=== PATIENT | female | born 1990 | race Caucasian/White ===

== ENCOUNTER 2020-04-28 16:53 | Emergency (ER) | payer OTHER, MEDICAID, SELFPAY ==
[2020-04-28 17:00] VITALS: BP 146/83; PULSE 88; RESP 16; TEMP 36.8; O2SAT 100
[2020-04-28 17:29] LABS: Basophils Percent Auto 0.5 % (0.2-1.2); Eosinophils Absolute Auto 0.1 K/mm3 (0-0.3); Eosinophils Percent Auto 1.5 % (0-4.4); Hematocrit 40.6 % (37.0-47.0); Hemoglobin 13.2 g/dL (12.0-15.0); Immature Granulocyte Absolute 0.02 K/mm3 (0.00-0.031); Immature Granulocyte Percent A 0.2 % (0-0.5); Lymphocytes Absolute Auto 1.56 K/mm3 (0.9-3.2); Mean Corpuscular HGB Conc 32.5 g/dl (32-36); Mean Corpuscular Hemoglobin 28.6 pg (26-34); Mean Corpuscular Volume 87.9 fl (80-100); Mean Platelet Volume 10.1 fl (7.4-10.4); Monocytes Absolute Auto 0.3 K/mm3 (0.1-0.6); Monocytes Percent Auto 3.9 % (2.6-8.5); Neutrophils Absolute Auto 6.6 K/mm3 (1.3-6.7); Neutrophils Percent Auto 75.9 % (45.5-73.1); Platelet Count Result 246 k/mm3 (150-375); Red Blood Count 4.62 M/mm3 (4.2-5.4); White Blood Count 8.7 K/mm3 (4.5-10.0)
[2020-04-28 17:37] LABS: Add Urine Microscopic? YES; Appearance Urine Cloudy (Clear); Bacteria Urine Trace /hpf; Bilirubin Urine Negative (Negative); Blood Urine 3+ (Negative); Color Urine Yellow (Yellow); Glucose Urine UA Negative (Negative); Ketones Urine 1+ mg/dL (Negative); Leukocyte Esterase Ur 2+ LEU/UL (Negative); Mucus Urine Rare /lpf; Nitrate Urine Negative (Negative); Protein Urine 1+ mg/dL (Negative); Specific Grav Ur 1.023 (1.001-1.035); Squamous Epithelial Cell Urine Many /hpf (Few); Urobilinogen Urine Negative mg/dL (<2.0)
[2020-04-28 18:01] VITALS: BP 136/87; PULSE 83; RESP 15; O2SAT 100
--- NOTE | 2020-04-28 18:12 | ED.FEMALEGU ---
HPI - Female Genitourinary General Chief complaint: Vaginal Bleeding Stated complaint: VAG BLEED 12 WKS PREG Time Seen by Provider: 04/28/20 18:00 History of Present Illness HPI Narrative: 29 yo female at 12 weeks gestation presents to the ED for vaginal bleeding. She reports that she awoke this more with the sheets soaked in what looked like a mix of blood and water. She did not pass any tissue or clots. She has continued to have spotting throughout the day. No other symptoms. She does not know her blood type. She has had one previous spontaneous . Related Data Allergies Allergy/AdvReac Type Severity Reaction Status Date / Time No Known Allergies Allergy Verified 04/28/20 18:03 Review of Systems Review of Systems: All systems reviewed & are unremarkable except as noted in HPI and below Cardiovascular: Cardiovascular: Denies chest pain Respiratory: Respiratory: Denies dyspnea Gastrointestinal: Gastrointestinal: Denies abdominal pain and Denies nausea Genitourinary: Genitourinary: Denies nocturia and Denies dysuria Neurologic: Denies dizziness and Denies weakness [facility] Past Medical History Medical History (Updated 04/29/20 @ 00:00 by Carline Luis) Elective Social History Social History (Updated 04/28/20 @ 18:42 by Valeriano Novak MD) Smoking status: Never smoker Exam Const: General: healthy appearing, no acute distress and alert Nutritional Appearance: obese Orientation/consciousness: patient oriented x3 HENMT: Head: normal to inspection Resp: Effort & Inspection: normal respiratory effort Auscultation: clear to auscultation bilaterally Cardio: Rate: regular rate Rhythm: regular rhythm GI: GI Palp: Yes Soft to palpation and No Tenderness to palpation present (GI) Skin: General skin exam: normal color Neuro: General: patient oriented x3 and moves all extremities Speech: normal speech Extrem: General: normal to inspection and no edema Course Vital Signs Vital signs: Vital Signs Temperature 36.8 C 04/28/20 17:00 Pulse Rate 88 04/28/20 17:00 Respiratory Rate 16 04/28/20 17:00 Blood Pressure 146/83 H 04/28/20 17:00 Pulse Oximetry 100 04/28/20 17:00 Temperature 36.8 C 04/28/20 17:00 Pulse Rate 88 04/28/20 19:16 Respiratory Rate 14 04/28/20 19:16 Blood Pressure 114/76 04/28/20 19:16 Pulse Oximetry 99 04/28/20 19:16 Procedures Other Procedure Procedure 1: Other Procedure: I personally performed a bedside ultrasound Fetus appears grossly normal for reported dates. Reassuring movement FHR 158 hypoechoic area behind placeneta, suspect subchoriaonic hematma MDM - Female Genitourinary MDM Narrative Medical decision making narrative: most likely bleeding from subchorionic hematoma. Medical Records Attestation: I reviewed the patient's medical records. Lab Data Attestation: I reviewed the patient's lab results. Result diagrams: 04/28/20 17:09 Labs: Lab Results 04/28/20 04/28/20 04/28/20 Range/Units 17:09 17:09 17:09 WBC 8.7 (4.5-10.0) K/mm3 RBC 4.62 (4.2-5.4) M/mm3 Hgb 13.2 (12.0-15.0) g/dL Hct 40.6 (37.0-47.0) % MCV 87.9 (80-100) fl MCH 28.6 (26-34) pg MCHC 32.5 (32-36) g/dl RDW 14.0 (11.5-14.5) % Plt Count 246 (150-375) k/mm3 MPV 10.1 (7.4-10.4) fl Immature Gran % (Auto) 0.2 (0-0.5) % Neut % (Auto) 75.9 H (45.5-73.1) % Lymph % (Auto) 18.0 L (18.3-44.2) % [place] % (Auto) 3.9 (2.6-8.5) % Eos % (Auto) 1.5 (0-4.4) % Baso % (Auto) 0.5 (0.2-1.2) % Lymph # (Auto) 1.56 (0.9-3.2) K/mm3 [place] # (Auto) 0.3 (0.1-0.6) K/mm3 Eos # (Auto) 0.1 (0-0.3) K/mm3 Baso # (Auto) 0.0 (0.0-0.1) K/mm3 Abs Immat Gran (auto) 0.02 (0.00-0.031) K/mm3 Absolute Neuts (auto) 6.6 (1.3-6.7) K/mm3 Absolute Nucleated RBC 0.0 (0.0-0.012) K/mm3 Nucleated RBC % 0.0 (0.0-0.2) % Beta HCG, Quant 4
[2020-04-28 18:44] VITALS: BP 123/79; PULSE 73
[2020-04-28 18:45] VITALS: BP 127/85; BP 130/83; PULSE 71; PULSE 95
--- NOTE | 2020-04-28 18:52 | PC.NURSE ---
RN unable to find heart tones at this time. ERP notified.
--- NOTE | 2020-04-28 19:00 | PC.NURSE ---
PER ERP. HR 158
[2020-04-28 19:16] VITALS: BP 114/76; PULSE 88; RESP 14; O2SAT 99
== END 2020-04-28 19:17 | disposition home or self-care (01) ==
PROVIDERS: Emergency Medicine; Emergency Provider Emergency Medicine
DX: O20.0 Threatened abortion (principal); Z3A.12 12 weeks gestation of pregnancy
CPT/HCPCS: 36415; 81001; 84702; 85025; 85461; 99284

== ENCOUNTER 2020-05-01 07:23 | Outpatient (CLI) | payer OTHER, SELFPAY ==
--- NOTE | ~2020-05-01 | US_ITS ---
EXAMINATION: US OB <= 14 weeks fetus DATE: 05/01/2020 07:48 INDICATION: Spotting during first trimester TECHNIQUE: Real-time pelvic transabdominal and transvaginal ultrasound was performed. COMPARISON: None. FINDINGS: The uterus measures 13.0 x 6.9 x 10.1 cm. There is an intrauterine gestational sac. There is a 2.3 x 1.9 x 1.9 cm hypoechoic area adjacent to the gestational sac. heart motion is identi fied measuring 149 beats per minute (bpm) by M-mode Doppler. The crown rump length measures 5.1 cm , which correlates with an estimated gestational age of 11 weeks and 5 day(s) (+/-) 7 day(s). The ovaries are not visualized however no adnexal abnormality is seen. There is no free fluid in the pelvis. IMPRESSION: 1. Live intrauterine with an estimated gestational age of 11 weeks and 5 day(s) (+/-) 7 day (s) and an estimated delivery date of 11/15/2020. 2. Likely small subchorionic hematoma. Reviewed, dictated and finalized at location A. ICAL DATA ABSTRACTOR IMPRESSION: 1. Live intrauterine with an estimated gestational age of 11 weeks an d 5 day(s) (+/-) 7 day(s) and an estimated delivery date of 11/15/2020. 2. Likely small subchorionic hematoma.
== END 2020-05-01 07:24 | disposition home or self-care (01) ==
PROVIDERS: PCP Obstetrics & Gynecology Gynecology; Visit Provider Obstetrics & Gynecology Gynecology
DX: O26.851 Spotting complicating pregnancy, first trimester (principal); Z3A.11 11 weeks gestation of pregnancy
CPT/HCPCS: 76801

== ENCOUNTER 2020-05-11 12:36 | Outpatient (CLI) | payer OTHER, SELFPAY ==
--- NOTE | ~2020-05-11 | US_ITS ---
EXAMINATION: US OB <= 14 weeks fetus DATE: 05/11/2020 13:28 INDICATION: Subchorionic hematoma during first trimester . TECHNIQUE: Real-time pelvic ultrasound utilizing both a transvaginal and transabdominal probe was pe rformed. The interpreting radiologist was not present for the study. COMPARISON: 05/01/2020 FINDINGS: There is a single intrauterine fetus in vertex position with crown-rump length measuring 6.3 cm which is concordant within 2 days of prior estimated gestational age of 12 weeks and 3 days. heart m otion is identified measuring 152 beats per minute (bpm) by M-mode Doppler. Interval evolution of pre viously heterogeneously likely subchorionic hematoma now appearing more homogeneously hypoechoic and measuring 4.3 x 1.7 x 1.3 cm which is not significantly changed since the prior study. The ovaries ar e not visualized. There is no free fluid in the pelvis. IMPRESSION: 1. Single living fetus with heart rate of 152 bpm and crown-rump length of 6.3 similar which is concordant with previously estimated gestational age of 12 weeks 3 day(s) with ultrasound estimated date of delivery (DEV) of 11/20/2020. 2. Persistent small subchorionic hematoma. Reviewed, dictated and finalized at location H. ERS COMPENSATION CLAIMS SPECIALIST IMPRESSION: 1. Single living fetus with heart rate of 152 bpm and crown-rump length o f 6.3 similar which is concordant with previously estimated gestational age of 12 weeks 3 day(s) with ultrasound estimated date of delivery (DEV) of 11/20/2020 . 2. Persistent small subchorionic hematoma.
== END 2020-05-11 12:37 | disposition home or self-care (01) ==
PROVIDERS: PCP Obstetrics & Gynecology Gynecology; Visit Provider Obstetrics & Gynecology Gynecology
DX: O26.851 Spotting complicating pregnancy, first trimester (principal); O36.8910 Maternal care for other specified fetal problems, first trimester, not applicable or unspecified; Z3A.12 12 weeks gestation of pregnancy
CPT/HCPCS: 76801

== ENCOUNTER 2020-05-14 11:42 | Outpatient (CLI) | payer OTHER, SELFPAY ==
[2020-05-14 12:05] LABS: Collection Time Urine 24 HOURS
[2020-05-14 12:27] LABS: Basophils Percent Auto 0.3 % (0.2-1.2); Eosinophils Absolute Auto 0.1 K/mm3 (0-0.3); Eosinophils Percent Auto 1.3 % (0-4.4); Hematocrit 36.3 % (37.0-47.0); Hemoglobin 11.9 g/dL (12.0-15.0); Immature Granulocyte Absolute 0.03 K/mm3 (0.00-0.031); Immature Granulocyte Percent A 0.4 % (0-0.5); Lymphocytes Absolute Auto 1.58 K/mm3 (0.9-3.2); Lymphocytes Percent Auto 20.4 % (18.3-44.2); Mean Corpuscular HGB Conc 32.8 g/dl (32-36); Mean Corpuscular Hemoglobin 28.3 pg (26-34); Mean Corpuscular Volume 86.2 fl (80-100); Mean Platelet Volume 10.2 fl (7.4-10.4); Monocytes Absolute Auto 0.3 K/mm3 (0.1-0.6); Monocytes Percent Auto 4.4 % (2.6-8.5); Neutrophils Absolute Auto 5.7 K/mm3 (1.3-6.7); Neutrophils Percent Auto 73.2 % (45.5-73.1); Platelet Count Result 228 k/mm3 (150-375); Red Blood Count 4.21 M/mm3 (4.2-5.4); Red Cell Distribution Width 13.9 % (11.5-14.5); White Blood Count 7.8 K/mm3 (4.5-10.0)
[2020-05-14 12:37] LABS: Hemoglobin A1C 4.7 % (<5.7)
[2020-05-14 12:48] LABS: Estimated Glomerular Filt Rate > 60
[2020-05-14 13:24] LABS: HIV 1/2 Ab P24 Ag Result Negative (Negative)
[2020-05-14 13:46] LABS: Hepatitis B Surface Antigen Negative (Negative); Rubella IgG Antibody 13.6 IU/ML
[2020-05-14 15:55] LABS: Patient Weight 250 Lbs
[2020-05-14 15:57] LABS: Total Volume 24 Hour Urine 600 ml
[2020-05-14 16:24] LABS: Creatinine Clearance Urine 125.1 ml/min (75-125); Creatinine Urine 220.6 mg/dL
[2020-05-15 10:54] LABS: Rapid Plasma Reagin Non-Reactive (NonReactive)
== END 2020-05-14 11:43 | disposition home or self-care (01) ==
LOC: ANHLAB 11:45
PROVIDERS: PCP Obstetrics & Gynecology Gynecology; Visit Provider Nurse Practitioner
DX: Z34.90 Encounter for supervision of normal pregnancy, unspecified, unspecified trimester (principal); Z3A.00 Weeks of gestation of pregnancy not specified
CPT/HCPCS: 36415; 82306; 82565; 82575; 83036; 85025; 86592; 86703; 86762; 86850; 86900; 86901; 87340; G0432

== ENCOUNTER 2020-06-08 08:22 | Outpatient (CLI) | payer OTHER, SELFPAY ==
--- NOTE | ~2020-06-08 | US_ITS ---
US OB >= 14 weeks Fetus DATE: 06/08/2020 09:45 INDICATION: Subchorionic hematoma TECHNIQUE: Real-time imaging and Doppler analysis COMPARISON: 05/11/2020, 05/01/2020 obstetrical ultrasound examinations FINDINGS: Live chau intrauterine gestation, fetus in vertex presentation with heart rate o f 152 bpm. Posterior placenta. Normal amount of amniotic fluid by subjective assessment. There is interval virtually complete resolution of subchorionic hematoma since 05/11/2020. IMPRESSION: Virtually complete resolution of subchorionic hematoma since 05/11/2020 Reviewed, dictated and finalized at Location A. Reviewed, dictated and finalized at location A. [employer] OFFICER IMPRESSION: Virtually complete resolution of subchorionic hematoma since 2019
== END 2020-06-08 08:23 | disposition home or self-care (01) ==
PROVIDERS: Visit Provider Obstetrics & Gynecology Gynecology
DX: O26.851 Spotting complicating pregnancy, first trimester (principal); Z3A.00 Weeks of gestation of pregnancy not specified
CPT/HCPCS: 76805

== ENCOUNTER 2020-10-04 08:20 | Outpatient (CLI) | payer OTHER, SELFPAY ==
--- NOTE | ~2020-10-04 | US_ITS ---
EXAMINATION: US OB /maternal detail EXAM DATE: 10/04/2020 09:03 INDICATION: OB anatomy scan. 3rd trimester. TECHNIQUE: Pelvic obstetrical transabdominal sonogram was performed by a technologist. There are mu ltiple grayscale and Doppler images available for interpretation. Comparison is made to prior examina tion from 06/08/2020. FINDINGS: There is a single fetus identified in vertex presentation with a heart rate of 139 beats pe r minute. The placenta is located in the fundal position. There is no sonographic evidence of retrop lacental hemorrhage identified. The amniotic fluid index is 14.8 centimeters, which is normal. BIOMETRIC DATA: Biparietal diameter (BPD): 8.2 cm ----------------> 32 weeks 3 days. Head circumference (HC): 29.6 cm ----------------> 32 weeks 5 days. Abdominal circumference (AC): 29.9 cm ----------> 3 weeks 6 days. Femur length (FL): 6.5 cm --------------------------> 33 weeks 5 days. These measurements are concordant. HC/AC ratio is 0.99 (The 5th -- 95th percentile range is 0.96-1.11. Estimated weight is 2234 g +/- 335 g. This is the 56th percentile when the currently reported clinical gestation age 33 weeks 1 day, clinical estimated date of delivery (DEV-OPE) 11/21 is used. Fe simone estimated gestational age based on measurements from this exam is 33 weeks 2 days, with an estima lali date of delivery (DEV-AUA) 11/20. ANATOMIC SURVEY: Anatomy scan was limited due to advanced age and position. Following anatomy not well visualized: Cerebral ventricles, cisterna magna, nuchal fold, diaphragm. The following anatomy was visualized suboptimally, but appeared normal based on images availabl e: Spine, left ventricular outflow tract. The following anatomy is identified and is sonographically normal in appearance: Cerebellum Four-chamber heart Stomach Kidneys Bladder Three-vessel cord Cord insertion Nasal bone Extremities IMPRESSION: 1. Single fetus in vertex presentation with heart rate 139 beats per minute. 2. Estimated weight of 2234 grams, 56th percentile using the currently reported clinical gesta tion age of 33 weeks 1 day, DEV(OPE) 11/21. 3. Incomplete anatomic survey. Anatomy visualized was normal. 4. Normal amniotic fluid index 14.8 cm. Reviewed, dictated and finalized at location A. IMPRESSION: 1. Single fetus in vertex presentation with heart rate 139 beats per minute. 2. Estimated weight of 2234 grams, 56th percentile using the currently r eported clinical gestation age of 33 weeks 1 day, DEV(OPE) 11/21. 3. Incomplete anatomic survey. Anatomy visualized was normal. 4. Normal amniotic fluid index 14.8 cm.
== END 2020-10-04 08:21 | disposition home or self-care (01) ==
PROVIDERS: Visit Provider Obstetrics & Gynecology Gynecology
DX: Z36.9 Encounter for antenatal screening, unspecified (principal); Z3A.00 Weeks of gestation of pregnancy not specified
CPT/HCPCS: 76805

== ENCOUNTER 2020-10-23 00:11 | Inpatient (IN) | payer OTHER, SELFPAY ==
[2020-10-23] VITALS (158 sets, daily range): BP systolic 97–168; BP diastolic 50–114; PULSE 69–143; RESP 16–18; TEMP 35.9–37.1; O2SAT 96–100; BMI 48.4
--- NOTE | 2020-10-23 01:54 | OBADM ---
This patient, Dior Bai, admitted to the OB room Labor/Delivery/Recovery 105 for observation. Patient/family oriented to hospital policies and general routines including ID bracelet, bed and alarms, visiting hours, pain management, procedures, bathroom and other care routines, personal items, smoking policy, room service/diet, and visiting hours. Patient/Family are encouraged to report perceived risks to care and to ask questions if they do not understand what they are told or what they should do.
[2020-10-23] MEDS: LACTATED RINGERS 1,000 ML 125 ML IV CONT ×3 (03:48→08:20)
[2020-10-23] MEDS: AMPICILLIN 2 GM/NS 100 ML 2 GM/100 ML BAG IVPB (03:49)
[2020-10-23 04:15] LABS: Basophils Percent Auto 0.4 % (0.2-1.2); Eosinophils Absolute Auto 0.1 K/mm3 (0-0.3); Hematocrit 33.9 % (37.0-47.0); Hemoglobin 10.9 g/dL (12.0-15.0); Immature Granulocyte Absolute 0.04 K/mm3 (0.00-0.031); Immature Granulocyte Percent A 0.4 % (0-0.5); Lymphocytes Absolute Auto 1.94 K/mm3 (0.9-3.2); Lymphocytes Percent Auto 19.9 % (18.3-44.2); Mean Corpuscular HGB Conc 32.2 g/dl (32-36); Mean Corpuscular Hemoglobin 28.4 pg (26-34); Mean Corpuscular Volume 88.3 fl (80-100); Mean Platelet Volume 10.2 fl (7.4-10.4); Monocytes Absolute Auto 0.6 K/mm3 (0.1-0.6); Monocytes Percent Auto 5.7 % (2.6-8.5); Neutrophils Absolute Auto 7.1 K/mm3 (1.3-6.7); Neutrophils Percent Auto 72.6 % (45.5-73.1); Platelet Count Result 222 k/mm3 (150-375); Red Blood Count 3.84 M/mm3 (4.2-5.4); Red Cell Distribution Width 14.3 % (11.5-14.5); White Blood Count 9.8 K/mm3 (4.5-10.0)
--- NOTE | 2020-10-23 04:40 | LDADM ---
This patient, Dior Jennings Bai, was admitted to Labor/Delivery/Recovery 105 on 10/23/20 at 03:32. Plans for labor, pain management and were discussed with patient. Patient/family oriented to hospital policies and general routines including ID bracelet, bed and alarms, visiting hours, pain management, procedures, bathroom and other care routines, personal items, smoking policy, room service/diet and guest tray routines, infant security routines, and visiting hours. Patient/Family are encouraged to report perceived risks to care and to ask questions if they do not understand what they are told or what they should do. See OBIX for further documentation.
[2020-10-23 05:09] LABS: HIV 1/2 Ab P24 Ag Result Negative (Negative)
--- NOTE | 2020-10-23 05:09 | P.PNAN_ITS ---
Anes - Eval Pre Procedure Procedure: labor epidural Date/Time: 10/23/20 05:09 Surgeon: Fercho Preop Diagnosis: labor pain Pre Op Diagnosis: Contractions Patient Data Age: 30 Gender: F Height: 1.57 m Weight: 120 kg Last Vital Signs Pulse 81 10/23/20 05:08 BP 143/67 H 10/23/20 05:08 Pulse Ox 100 10/23/20 05:08 Allergies Allergy/AdvReac Type Severity Reaction Status Date / Time No Known Allergies Allergy Verified 04/28/20 18:03 Laboratory Tests 10/23/20 10/23/20 10/23/20 04:08 04:08 04:08 WBC 9.8 K/mm3 K/mm3 (4.5-10.0) RBC 3.84 M/mm3 L M/mm3 (4.2-5.4) Hgb 10.9 g/dL L g/dL (12.0-15.0) Hct 33.9 % L % (37.0-47.0) MCV 88.3 fl fl (80-100) MCH 28.4 pg pg (26-34) MCHC 32.2 g/dl g/dl (32-36) RDW 14.3 % % (11.5-14.5) Plt Count 222 k/mm3 k/mm3 (150-375) MPV 10.2 fl fl (7.4-10.4) Immature Gran % (Auto) 0.4 % % (0-0.5) Neut % (Auto) 72.6 % % (45.5-73.1) Lymph % (Auto) 19.9 % % (18.3-44.2) [place] % (Auto) 5.7 % % (2.6-8.5) Eos % (Auto) 1.0 % % (0-4.4) Baso % (Auto) 0.4 % % (0.2-1.2) Lymph # (Auto) 1.94 K/mm3 K/mm3 (0.9-3.2) [place] # (Auto) 0.6 K/mm3 K/mm3 (0.1-0.6) Eos # (Auto) 0.1 K/mm3 K/mm3 (0-0.3) Baso # (Auto) 0.0 K/mm3 K/mm3 (0.0-0.1) Abs Immat Gran (auto) 0.04 K/mm3 H K/mm3 (0.00-0.031) Absolute Neuts (auto) 7.1 K/mm3 H K/mm3 (1.3-6.7) Absolute Nucleated RBC 0.0 K/mm3 K/mm3 (0.0-0.012) Nucleated RBC % 0.0 % % (0.0-0.2) RPR Pending HIV 1&2 Ab/P24 Ag 4thGn Pending Patient hx anesthesia problems: none Family hx anesthesia problems: none PMFSH Past Medical History Medical History Elective Family History Family History Mother Brain aneurysm Social History Social History Smoking status: Never smoker Substance use: current Spiritual care concerns: No Exam Day of Procedure 10/23/20 05:09 Patient weight: morbidly obese Heart: regular rate and rhythm Lungs: clear to auscultation and normal air movement Airway: Mallampati scale class II Neurological: alert and oriented
--- NOTE | 2020-10-23 05:10 | WPDANESEFPP ---
Anes - Eval Final PreProcedure Day of Procedure 10/23/20 05:10 Patient weight: morbidly obese Heart: regular rate and rhythm Lungs: clear to auscultation and normal air movement Airway: Mallampati scale class II Neurological: alert and oriented ASA classification: III Anesthetic plan: proceed Anesthesia type and monitoring: regional epidural and standard monitoring Informed Consent: The patient's anesthetic plan and its attendant risks and benefits were discussed with the patient/family/POA. Questions were solicited and answers provided to the satisfaction of the patient/family/POA.
--- NOTE | 2020-10-23 07:37 | WPDOBADMIT ---
Obstetrics - Admit Note Admission Note: record reviewed. No pertinent additions to the history and/or any subsequent changes in the physical findings that are not consistent with the expected course of the were found. Additions to the history and/or subsequent changes in the physical findings follow. Here in early labor. at 0100 I did bedside u/s and verified vertex position as RN could not feel presenting part. Now 7-8/70/-2 AROM with clear fluid FHTs reactive Continue expectant mgmt.
[2020-10-23] MEDS: AMPICILLIN 1 GM/NS 50 ML 1 GM/50 ML BAG IVPB ×2 (08:21→12:05)
[2020-10-23 08:47] LABS: Amphetamine Screen Urine Negative (Negative); Barbiturate Screen Urine Negative (Negative); Benzodiazepines Screen Urine Negative (Negative); Cannabinoid Screen Urine Negative (Negative); Cocaine Screen Urine Negative (Negative); Methadone Screen Urine Negative (Negative); Opiate Screen Urine Negative (Negative); Phencyclidine Screen Urine Negative (Negative)
[2020-10-23 10:35] LABS: Rapid Plasma Reagin Non-Reactive (NonReactive)
[2020-10-23] MEDS: OXYTOCIN 30 UNITS/NS 500 ML 30 UNITS/500 ML BAG 999 UNITS IV CONT (12:20)
--- NOTE | 2020-10-23 12:28 | P.PCNOB_ITS ---
OB - Delivery Note Procedure Delivery date: 10/23/20 Procedure: events: Labor < 37 Weeks Intrapartal events: None Induction method: none Delivery augmentation: rupture of membranes Delivery monitor: external FHT and external uterine Route of delivery: Laceration Description: Periurethral Delivery repair: vicryl (3-0) Specimen: Yes (placenta) Quantitative Blood Loss (ml): 110 Anesthesia type: Epidural Disposition: PACU [place] [facility] Date of : 10/23/20 Weeks of gestation at delivery: 36 gender: Male presentation: vertex position: Right Occiput Anterior Placenta delivery description: Spontaneous cord vessel description: 3 Vessels score one minute: 9 score five minutes: 9
--- NOTE | 2020-10-23 12:29 | PM.OBDSVD ---
DS: Admitting Diagnosis Admitting Diagnosis Admitting Diagnosis: IUP 36 wks; labor DS: Discharge Diagnosis Discharge Diagnosis (1) (normal spontaneous vaginal delivery): Code(s): O80 - Encounter for full-term uncomplicated delivery Status: Acute (2) 36 weeks gestation of : Code(s): Z3A.36 - 36 weeks gestation of Status: Acute OB - DS: Summary OB Procedures : Ultrasound OB Procedures Intrapartum: Spontaneous Vag Delivery OB Procedures: : None Peripartum Data Delivery Method: Natural Vaginal Laceration Description: Periurethral complications: none Status at Discharge Functional status at discharge: independent ambulation Overall status at discharge: patient is progressing back to baseline Time Spent with Patient Time attestation: Total time spent providing and/or coordinating discharge services: DS: Data Data Completed and Pending Labs on day of discharge: Labs from last 24 hours 10/23/20 10/23/20 10/23/20 07:52 04:08 04:08 WBC RBC Hgb Hct MCV MCH MCHC RDW Plt Count MPV Immature Gran % (Auto) Neut % (Auto) Lymph % (Auto) [place] % (Auto) Eos % (Auto) Baso % (Auto) Lymph # (Auto) [place] # (Auto) Eos # (Auto) Baso # (Auto) Abs Immat Gran (auto) Absolute Neuts (auto) Absolute Nucleated RBC Nucleated RBC % Urine Opiates Screen Negative Urine Methadone Screen Negative Ur Barbiturates Screen Negative Ur Phencyclidine Scrn Negative Ur Amphetamine Screen Negative U Benzodiazepines Scrn Negative Urine Cocaine Screen Negative U Cannabinoids Screen Negative RPR HIV 1&2 Ab/P24 Ag 4thGn Negative Blood Type A Positive Antibody Screen Negative 10/23/20 10/23/20 04:08 04:08 WBC 9.8 RBC 3.84 L Hgb 10.9 L Hct 33.9 L MCV 88.3 MCH 28.4 MCHC 32.2 RDW 14.3 Plt Count 222 MPV 10.2 Immature Gran % (Auto) 0.4 Neut % (Auto) 72.6 Lymph % (Auto) 19.9 [place] % (Auto) 5.7 Eos % (Auto) 1.0 Baso % (Auto) 0.4 Lymph # (Auto) 1.94 [place] # (Auto) 0.6 Eos # (Auto) 0.1 Baso # (Auto) 0.0 Abs Immat Gran (auto) 0.04 H Absolute Neuts (auto) 7.1 H Absolute Nucleated RBC 0.0 Nucleated RBC % 0.0 Urine Opiates Screen Urine Methadone Screen Ur Barbiturates Screen Ur Phencyclidine Scrn Ur Amphetamine Screen U Benzodiazepines Scrn Urine Cocaine Screen U Cannabinoids Screen RPR Non-reactive HIV 1&2 Ab/P24 Ag 4thGn Blood Type Antibody Screen Discharge Plan Discharge Attending physician on discharge: Berenice Brantley Discharging Clinician: Berenice Brantley Anticipated Discharge Date/Time: 10/25/20 12:31 Patient Disposition: Home, Self-Care Activity: may shower and pelvic rest Diet: regular Patient Instructions: Antibiotic Form Stand Alone Forms: General Discharge Information Follow-up/Referrals: Berenice Brantley MD [Physician] - 6 Weeks Discharge Medications: Continued PNV [id number] [] 28 mg iron- 800 mcg Tablet 1 tablet PO DAILY RF: 0 Date of admission: 10/23/20 03:32 Primary Care Provider: PHYSICIAN,ASSISTANT PROFESSOR OF MUSIC Admitting Provider: Berenice Brantley Attending physician on admission: Berenice Brantley Condition: Stable
[2020-10-23] MEDS: OXYTOCIN 30 UNITS/NS 500 ML 30 UNITS/500 ML BAG 125 UNITS IV CONT (13:01)
[2020-10-23] MEDS: WITCH HAZEL 40 PADS 1 PAD TOPICAL (14:29)
[2020-10-23] MEDS: BENZOCAINE 20% AER SPR (*SP) 56 GM CAN 1 SPRAY TOPICAL (14:29)
--- NOTE | 2020-10-23 18:49 | PC.NURSE ---
Consulted with patient, reviewed feeding cues, frequencies, duration of feedings, feeding elimination flow sheet, and signs of adequate intake. Demonstrated stimulation techniques to wake for feeding. Assisted with to breast. Reviewed positioning/alignment, holding breast and asymmetrical latch on. was [able/unable] to latch correctly. nursed eagerly, with steady draws and [frequent/occasional] swallowing noted. Reviewed signs of a correct latch, effective nursing and suck swallow ratio. was[able/unable] to maintain latch without discomfort to mother. Nipple care reviewed. Instructed mother to call out for RN assistance if she is unable to latch for feeding or she has discomfort with nursing. Instructed feeding should be initiated three hours from start of last feeding or if feeding cues are noted before. Mother voiced understanding of information shared.
--- NOTE | 2020-10-23 18:50 | PC.NURSE ---
Breast pump provided due to [late infant]. Instructions given on breast pump care and usage, pumping schedule, nipple care, and collection and storage of breast milk. Encouraged [id number], breast massage and manual expression to stimulate supply. Pumping log provided and reviewed. Assessed patient for correct flange size, placement and draw. Patient verbalizes and demonstrates understanding of instructions.
[2020-10-24] MEDS: IBUPROFEN 600 MG TABLET PO ×3 (01:45→16:02)
[2020-10-24 04:00] VITALS: PULSE 69; RESP 18; TEMP 36.6; O2SAT 100
[2020-10-24 07:12] LABS: Hematocrit 30.9 % (37.0-47.0); Hemoglobin 9.9 g/dL (12.0-15.0)
--- NOTE | 2020-10-24 07:28 | PM.OBPNVD ---
OB - PN: Subj Subjective Date/time seen: 10/24/20 07:28 Patient comments: no complaints and pain well controlled baby status: doing well OB - PN: Obj Data Labs CBC & Chem 7: 10/24/20 06:43 Labs: Laboratory Results - last 24 hr 10/23/20 10/23/20 10/24/20 04:08 07:52 06:43 Hgb 9.9 L Hct 30.9 L Urine Opiates Screen Negative Urine Methadone Screen Negative Ur Barbiturates Screen Negative Ur Phencyclidine Scrn Negative Ur Amphetamine Screen Negative U Benzodiazepines Scrn Negative Urine Cocaine Screen Negative U Cannabinoids Screen Negative RPR Non-reactive OB - PN A/P Plan day: 1 Plan: routine care Time Spent With Patient Time: Total time spent is greater than 50% in coordination of care (as documented) at patient's floor/unit and/or counseling patient: Exam : Bimanual exam- vagina & uterus: other (Uterus firm, nt @U)
--- NOTE | 2020-10-24 09:18 | WPDANLDPN2 ---
Anes-Prog Note L&D Date/Time: 10/24/20 09:18 Comfortable throughout: labor and delivery Neuraxial method: epidural Epidural/Spinal procedure site: clean & non-tender Neuro status: Neuro function grossly intact. Cardiovascular status: normal Respiratory status: normal Airway patency: baseline Mental status: baseline Post-Op hydration status: normal Vital Signs: Last Vital Signs Temp 36.6 C 10/24/20 04:00 Pulse 69 10/24/20 04:00 Resp 18 10/24/20 04:00 BP 97/50 L 10/23/20 23:52 Pulse Ox 100 10/24/20 04:00 Pain score (VAS): 0 Post-procedural complaints: none Patient feedback: Patient satisfied with anesthetic care.
[2020-10-24] MEDS: POLYSACCHARIDE IRON COMPLEX 150 MG CAPSULE PO ×3 (10:15→16:02)
[2020-10-24] MEDS: DOCUSATE SODIUM 100 MG CAPSULE PO ×2 (10:16→16:02)
[2020-10-24] MEDS: MULTIVIT/MIN/PREN/FOL AC/IRON TABLET 1 TAB PO (10:16)
[2020-10-24] MEDS: ACETAMINOPHEN 325 MG TABLET 650 MG PO ×2 (10:19→16:02)
[2020-10-24 10:20] VITALS: BP 122/71; PULSE 77; RESP 18; TEMP 36.3; O2SAT 99
--- NOTE | 2020-10-24 10:26 | PCCCNOTE ---
Care Coordination: Met with pt. after receiving a consult regarding marijuana use during . Pt. reports she ate an edible during . Pt's urine screen here was negative for all drugs. Pt. reports living in [place] with FOB, , and three other children. Pt. states FOB is very supportive and they both are working. 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 Pt. denies any prior involvement with DCFS. Pt. denies any concerns regarding returning home with . resources were provided to pt. Per RN Jun, baby's meconium will be tested. Will follow.
--- NOTE | 2020-10-24 13:20 | PC.NURSE ---
Mother called out for assist with feeding. Consulted with patient, mother reports has been sleepy since . Infant will latch with short bursts of suckling and fall asleep. Mother will then supplement and pump. This is mother's 4th child 1st to breastfeed. Mother reports she has been given and instructed on breastpump. Mother has not pumped regularly. Discussed stimulation and milk supply. advising to pump after each feeding attempt. Discussed and the 36 week , establishing may have its own unique set of circumstances due to their immaturity. infants may be less alert, have less stamina and may have issues with latch, suck and swallow. With the possible inability to have a vigorous suck swallow, infants may not be adequately stimulating mother and/or able to have adequate milk transfer. Pumping should be considered for additional stimulation and to offer EBM as part of supplement if needed. Reviewed feeding cues, frequencies, duration of feedings, feeding elimination flow sheet, and signs of adequate intake. Demonstrated stimulation techniques to wake infant for feeding. Assisted with to breast. Reviewed positioning/alignment in football, holding breast in C hold and guided asymmetrical latch on. Infant was able to latch within a few attempts. Infant nursed eagerly, with steady draws and occasional swallowing noted, followed with long pausing. Reviewed signs of a correct latch, effective nursing and suck swallow ratio. Infant was able to maintain latch. Mother reported tenderness at times, had slipped to shallow latch. Demonstrated how to adjust latch more deeply while feeding. Mother quickly reports she can feel is latched more deeply and has minimal tenderness. Advised is doing well with nursing, he is not nursing long enough to discontinue supplementation or pumping at this time. Suggested to stimulate while feeding to keep awake and nursing effectively for increased stimulation, increased intake and to assist with maintaining deep latch. Instructed mother to call out for RN assistance if she is unable to latch for feeding or she has discomfort with nursing.
[2020-10-24 20:00] VITALS: BP 107/63; PULSE 69; RESP 18; TEMP 36.4; O2SAT 98
[2020-10-25] MEDS: IBUPROFEN 600 MG TABLET PO ×2 (02:22→09:59)
--- NOTE | 2020-10-25 07:40 | PM.OBPNVD ---
OB - PN: Subj Subjective Date/time seen: 10/25/20 07:40 Patient comments: no complaints and pain well controlled baby status: doing well OB - PN: Obj Data Labs CBC & Chem 7: 10/24/20 06:43 OB - PN A/P Plan day: 2 Plan: routine care, discharge home, follow up 6 weeks and other (plans condoms until BTL) Time Spent With Patient Time: Total time spent is greater than 50% in coordination of care (as documented) at patient's floor/unit and/or counseling patient: Exam : Bimanual exam- vagina & uterus: other (Uterus firm, nt @U)
[2020-10-25 08:45] VITALS: BP 121/68; PULSE 78; RESP 18; TEMP 36.6; O2SAT 98
[2020-10-25 09:00] VITALS: PULSE 78; RESP 18; O2SAT 98
[2020-10-25] MEDS: POLYSACCHARIDE IRON COMPLEX 150 MG CAPSULE PO (09:59)
[2020-10-25] MEDS: DOCUSATE SODIUM 100 MG CAPSULE PO (09:59)
[2020-10-25] MEDS: MULTIVIT/MIN/PREN/FOL AC/IRON TABLET 1 TAB PO (09:59)
--- NOTE | 2020-10-25 13:54 | PC.NURSE ---
0900 Mother is able to independently latch with appropriate positioning/alignment. continues with sleepiness and ineffective feeding. Mother will attempt for 5-10 minutes then supplement and pump, offering EBM/formula of 25mls each feeding. She is feeding as required and waking to feed if needed. Mother is pumping without difficulties or discomfort. Mother has a pump for home use, and is pumping after each attempt. Discussed to increase supplementation of EBM/formula as infant desires to satisfaction, for low output or not effectively feeding. Reviewed signs when infant may be ready to decrease or discontinue supplementation. Advised not to discontinue supplement until is effectively feeding and a feeding is observed by ICP, follow up RN or LC. Infant is feeding as required with adequate feedings, by bottle, in the past 24 hours, and is currently meeting outcomes for weight, output, jaundice and feeding frequencies. Mother states she feels confident to continue current feeding plan at home. Reviewed transition to breast milk, signs of adequate intake, and engorgement/relief. Instructed to call ICP if intake/output less than required. Reviewed regular medications mother is taking. Information provided per Kati. Reviewed community resources on the [facility] website and in the Mom/Baby guide. Information on outpatient services provided. Mother has no further questions at this time.
== END 2020-10-25 12:10 | disposition home or self-care (01) | DRG 560 ==
LOC: ANHLDR 12:32 → ANHOB2 15:07
PROVIDERS: Admitting Provider Obstetrics & Gynecology Gynecology; Visit Provider Obstetrics & Gynecology Gynecology
DX: O60.14X0 Preterm labor third trimester with preterm delivery third trimester, not applicable or unspecified (principal); Z37.0 Single live birth; Z3A.36 36 weeks gestation of pregnancy; O71.82 Other specified trauma to perineum and vulva; O99.214 Obesity complicating childbirth; E66.01 Morbid (severe) obesity due to excess calories
CPT/HCPCS: 36415; 80307; 85014; 85018; 85025; 86592; 86703; 86850; 86900; 86901; 88307; A9270; G0432; J0290; J2590; J2795; J7120

== ENCOUNTER 2022-12-05 14:46 | Emergency (ER) | payer OTHER, SELFPAY ==
[2022-12-05 15:08] VITALS: BP 114/67; PULSE 84; RESP 16; TEMP 36.1; O2SAT 97
--- NOTE | 2022-12-05 16:06 | PC.NURSE ---
called to be placed in room 17 and not in waiting room.
--- NOTE | 2022-12-05 16:25 | PC.NURSE ---
called again to place in room and not in waiting room.
== END 2022-12-05 16:25 | disposition left against medical advice (07) ==
DX: S09.90XA Unspecified injury of head, initial encounter (principal)
CPT/HCPCS: 99199

== ENCOUNTER 2023-09-24 10:03 | Emergency (ER) | payer OTHER, SELFPAY ==
[2023-09-24 10:37] VITALS: BP 127/66; PULSE 92; RESP 16; TEMP 36.7; O2SAT 99
--- NOTE | 2023-09-24 10:44 | ED.URI ---
HPI - URI/Sore Throat General Chief Complaint: Upper Respiratory Infection Stated Complaint: Throat Time Seen by Provider: 09/24/23 10:34 Source: patient and RN notes reviewed Mode of arrival: ambulatory Limitations: no limitations History of Present Illness HPI Narrative: Patient presents today complaining of a sore throat since yesterday. Denies any additional symptoms to include cough, congestion, runny nose. Currently rates her pain 5/10, which increases with swallowing. She has been taking ibuprofen without much relief. Children present with her with similar symptoms. Related Data Allergies Allergy/AdvReac Type Severity Reaction Status Date / Time No Known Allergies Allergy Verified 04/28/20 18:03 Review of Systems Review of Systems: CONSTITUTIONAL: Denies body aches, fever, chills, or sweats. EYES: Denies visual changes, redness, or discharge. ENT: Denies rhinorrhea, congestion, or otalgia.+ sore throat CARDIOVASCULAR: Denies chest pain, palpitations, or edema. RESPIRATORY: Denies cough or dyspnea. GASTROINTESTINAL: Denies abdominal pain, nausea, vomiting, or diarrhea. GENITOURINARY: Denies dysuria or hematuria. SKIN: Denies rash, itching, or wounds. MUSCULOSKELETAL: Denies back pain, joint pain, or myalgia. NEUROLOGIC: Denies headache, numbness, tingling, or weakness. PSYCH: Denies depression or anxiety. [facility] Past Medical History Medical History Elective Family History Family History Mother Brain aneurysm Social History Social History Smoking status: Never smoker Substance use: current Spiritual care concerns: No Comments At time of signature, I have reviewed and agree with nursing past medical, surgical, social and family history unless otherwise noted. Please see nursing chart for further information. There is no relevant family history pertinent to the presenting complaint Exam Narrative: GENERAL: Well-appearing, well-nourished, and in no acute distress. HEAD: Normocephalic, atraumatic. EYES: EOMI. No redness or drainage. Conjunctivae normal. ENT: Mucous membranes pink and moist. Nares clear. No rhinorrhea. TMs normal bilaterally. Throat erythematous and edematous. Tonsils 3+. Uvula midline. NECK: Normal AROM. Supple. No lymphadenopathy. CHEST: No respiratory distress. Clear to auscultation. HEART: Regular rate and rhythm. No murmur appreciated. EXTREMITIES: Normal range of motion. No edema. SKIN: Warm, dry, no rash. Capillary refill normal. Normal skin turgor. NEURO: No focal deficits. Alert and oriented x3. Gait steady. PSYCH: Normal affect. No signs of depression or anxiety. Course Course Level of Care: Express Care Visit Vital Signs Vital signs: Vital Signs Temperature 98.0 F 09/24/23 10:37 Pulse Rate 92 09/24/23 10:37 Respiratory Rate 16 09/24/23 10:37 Blood Pressure 127/66 09/24/23 10:37 Pulse Oximetry 99 09/24/23 10:37 Oxygen Delivery Room Air 09/24/23 10:37 Temperature 98.0 F 09/24/23 10:37 Pulse Rate 92 09/24/23 10:37 Respiratory Rate 16 09/24/23 10:37 Blood Pressure 127/66 09/24/23 10:37 Pulse Oximetry 99 09/24/23 10:37 Oxygen Delivery Room Air 09/24/23 10:37 Reviewed MDM - URI/Sore Throat MDM Narrative Medical decision making narrative: Strep positive. Prescription for amoxicillin sent to pharmacy. Anticipatory guidance given. Differential Diagnosis Differential diagnosis: Likely upper respiratory infection, viral infection, pharyngitis and other (Strep throat) Lab Data Attestation: I reviewed the patient's lab results. Lab results narrative: Rapid strep positive Critical Care Time Critical Care Time Critical Care Time: No Discharge Plan Discharge Clinical Impression: Strep throat
== END 2023-09-24 11:01 | disposition home or self-care (01) ==
PROVIDERS: Emergency Provider Nurse Practitioner
DX: J02.0 Streptococcal pharyngitis (principal)
CPT/HCPCS: 87880; 99213; G0463

== ENCOUNTER 2024-05-18 13:57 | Emergency (ER) | payer BC, SELFPAY ==
--- NOTE | 2024-05-18 14:04 | ED.GENADULT ---
HPI - General Adult General Chief complaint: Dizziness Stated complaint: poss vertigo Time Seen by Provider: 05/18/24 14:10 Source: patient, RN notes reviewed and old records reviewed Mode of arrival: ambulatory Limitations: no limitations History of Present Illness HPI narrative: 33 year old female presents to [facility] care with complaints of awakening this morning at 0600 with room spinning which did resolve after a while and then reoccurred with position changes. Patient reports that she has felt ear fullness for the past 3 days, denies any ear pain,sinus congestion sore throat of any other ill symptoms. Patient reports that she has never had any problems with her blood pressure except when she was in her last trimester. Patient has not taken any OTC medications for her symptoms. Patient denies any headache pain does report that she has had 2 migraines in the past month which were resolved with Excedrin migraine medication. MD complaint: vertigo and ear fullness Onset (ago): day(s) (3 days of ear fullness, and this morning experienced vertigo) Severity: moderate Exacerbating factors: other (change of position) Treatments prior to arrival: none Related Data Allergies Allergy/AdvReac Type Severity Reaction Status Date / Time No Known Allergies Allergy Verified 04/28/20 18:03 Review of Systems Review of Systems: CONSTITUTIONAL: Denies fever, chills, or sweats. EYES: Denies visual changes, redness, or discharge. ENT: Denies rhinorrhea, congestion, sore throat,reports ear fullness CARDIOVASCULAR: Denies chest pain, palpitations, or edema. RESPIRATORY: Denies cough or dyspnea. GASTROINTESTINAL: Denies abdominal pain, nausea, vomiting, or diarrhea. GENITOURINARY: Denies dysuria or hematuria. SKIN: Denies rash or itching. MUSCULOSKELETAL: Denies back pain, joint pain, or myalgia. NEUROLOGIC: Denies headache, numbness, or weakness, reports episodes of vertigo especially with position changes. PSYCHIATRIC: Denies anxiety or depression. All systems reviewed & are unremarkable except as noted in HPI and below PMFSH Past Medical History Medical History (Updated 05/19/24 @ 00:01 by Carline Luis) Elective Hypertension affecting Surgical History Surgical History (Updated 05/18/24 @ 14:28 by Yohana Carlos NP) History of dilatation and curettage Family History Family History Mother Brain aneurysm Social History Social History Smoking status: Never smoker Alcohol intake: never Substance use: never Living arrangements: with family Gender identity (if verbalized by the patient): Female Spiritual care concerns: No Comments At time of signature, agree with nursing past medical, surgical, social and family history. There is no relevant family history pertinent to the presenting complaint Exam Narrative: GENERAL: Well-appearing, well-nourished, and in no acute distress. HEAD: Normocephalic, atraumatic. EYES: PERRLA and EOMI. ENT: Nares clear, no rhinorrhea or epistaxis. Mucous membranes moist.TM's with dull light reflex and some bulging no redness, throat pink with no redness or swelling NECK: Supple. no lymphadenopathy CHEST: Clear to auscultation. No respiratory distress.SAO2 100% on room air HEART: Regular rate and rhythm. No murmur heard. Normal peripheral pulses. ABDOMEN: Soft, nontender, nondistended, normal active bowel sounds. EXTREMITIES: Normal range of motion. No edema. SKIN: Warm, dry, no rash. NEURO: No focal deficits. Alert and oriented x3.vertigo with position changes, see orthostatics Course Course Emergency Course: Patient is aware of diagnosis, understands and agrees to treatment plan.? Anticipatory guidance given.? Patient agrees to follow-up as directed and is aware of reasons to seek care at the emergency department. Portions of this record may have been created with voice recognition software Level of Care: Express Care Visit Vital Signs Vital signs: Vital Signs Temperature 36.4 C L 05/18/24 14:06 Pulse Rate 95 05/18/24 14:06 Respiratory Rate 16 05/18/24 14:06 Blood Pressure 138/72 05/18/24 14:06 Pulse Oximetry 100 05/18/24 14:06 Oxygen Delivery Room Air 05/18/24 14:06 Temperature 36.4 C L 05/18/24 14:06 Pulse Rate 120 H 05/18/24 14:20 Respiratory Rate 16 05/18/24 14:06 Blood Pressure 133/79 05/18/24 14:20 Pulse Oximetry 100 05/18/24 14:06 Oxygen Delivery Room Air 05/18/24 14:06 Reviewed Medical Decision Making MDM Narrative Medical decision making narrative: Exam findings and imaging show no acute concerns or changes; patient is non-toxic appearing and is in no distress.? Patient is appropriate for outpatient treatment and follow-up Differential Diagnosis Differential Diagnosis: benign positional vertigo, bilateral ear fullness, dizziness Medical Records Medical records reviewed: Yes I reviewed the external patient's medical records. Vital Signs Vital Signs: Vital Signs Temperature 36.4 C L 05/18/24 14:06 Pulse Rate 95 05/18/24 14:06 Respiratory Rate 16 05/18/24 14:06 Blood Pressure 138/72 05/18/24 14:06 Pulse Oximetry 100 05/18/24 14:06 Oxygen Delivery Room Air 05/18/24 14:06 Temperature 36.4 C L 05/18/24 14:06 Pulse Rate 120 H 05/18/24 14:20 Respiratory Rate 16 05/18/24 14:06 Blood Pressure 133/79 05/18/24 14:20 Pulse Oximetry 100 05/18/24 14:06 Oxygen Delivery Room Air 05/18/24 14:06 Critical Care Time Critical Care Time Critical Care Time: No Discharge Plan Discharge Clinical Impression: Vertigo, Sensation of fullness in both ears Patient Disposition: Home, Self-Care Condition: Stable Instructions: Antibiotic Form, Benign Paroxysmal Positional Vertigo (ED) Additional Instructions: Increase fluids especially juices and water Voie-zya-cjocdzy cough and cold medicine of your choice for your symptoms Zyrtec Claritin or Alannah daily include Coricidin brand decongestant Steroids as directed--take with food heat to the face 20-30 minutes 4-6 times a day for pain Salt water gargles, throat lozenges or throat sprays as desired Satya maneuvers If your symptoms persist, change or worsen significantly before you can contact your personal physician then please, without delay, go to the emergency department for further evaluation. Follow-up with PCP in 7-10 days or sooner if needed Follow up with PCP soon in regards to your blood pressure which is elevated above threshold for referral. Blood pressure above 120/80 may indicate pre-hypertension. 133/79 Prescriptions: New methylprednisolone [Medrol (Brendon)] 4 mg tablets,dose pack See Rx Instructions .ROUTE .COMPLEX Qty: 21 0RF Rx Instructions: orally per package directions meclizine 25 mg tablet 25 mg PO BID PRN (Reason: dizziness) Qty: 30 0RF loratadine [Claritin] 10 mg tablet 10 mg PO DAILY Qty: 30 0RF Follow-up/Referrals: PHYSICIAN,RISK INVESTIGATOR [Primary Care Provider] - Time of Disposition: 14:34 Quality [place] Coma Scale Eyes: Open Verbal: Oriented and Alert Motor: Follows Commands [place] Coma Total Score: 15
[2024-05-18 14:06] VITALS: BP 138/72; PULSE 95; RESP 16; TEMP 36.4; O2SAT 100
[2024-05-18 14:17] VITALS: BP 138/63; PULSE 91
[2024-05-18 14:18] VITALS: BP 146/76; PULSE 92
[2024-05-18 14:20] VITALS: BP 133/79; PULSE 120
== END 2024-05-18 14:39 | disposition home or self-care (01) ==
PROVIDERS: Emergency Provider Registered Nurse
DX: R42 Dizziness and giddiness (principal); H93.8X3 Other specified disorders of ear, bilateral
CPT/HCPCS: 99213; G0463

== ENCOUNTER 2024-11-06 09:22 | Emergency (ER) | payer BC, SELFPAY ==
--- OUTSIDE RECORDS SUMMARY | 2024-11-06 09:26 | XMS_ITS | Clinical Summary ---
Author Organization [facility] [employer] Address [address] [place] [address] Care Team Providers Care Lead Producer Name Role Phone None, Physician Primary Care Provider Unavailabl e Source Comments [facility] [employer],non-owned Affiliates and Associated Physician Practices is amultiple site organization consisting of ambulatory clinics and hospital sitesin [place], [place], [place] and [place]. This disclosure is being madepursuant to the Care Everywhere program and may not contain all information available regarding this patient. Last updated 18.[facility] [employer] Allergies No known active allergies Social History Tobacco Use Types Packs/Day Years Used Date Smoking Tobacco: Never Assessed Comments Unknown Sex and Gender Information Value Date Recorded Sex Assigned at Not on file Legal Sex Female 2:58 PM CDT Gender Identity Not on file Sexual Orientation Not on file Last Filed Vital Signs Vital Sign Reading Time Taken Comments Blood Pressure 140/85 08/01/2024 7:30 PM GENERAL DENTIST/OWNER Pulse 98 08/01/2024 7:30 PM GENERAL DENTIST/OWNER Temperature 36.9 C (98.4 F) 08/01/2024 5:05 PM GENERAL DENTIST/OWNER Respiratory Rate 16 08/01/2024 7:30 PM GENERAL DENTIST/OWNER Oxygen Saturation 95% 08/01/2024 7:30 PM GENERAL DENTIST/OWNER Inhaled Oxygen Concentration - - Weight 149.3 kg (329 lb 3.2 oz) 08/01/2024 5:39 PM GENERAL DENTIST/OWNER Height 157.5 cm (5' 2 ) 08/01/2024 5:05 PM GENERAL DENTIST/OWNER Body Mass Index 60.21 08/01/2024 5:05 PM GENERAL DENTIST/OWNER Plan of Treatment Health Maintenance Due Date Last Done Comments PAP SMEAR 1988 HIV SCREENING 2003 HEPATITIS C SCREENING 06/09/2006 DTAP/TDAP/TD VACCINES (1 - Tdap) 2007 HEPATITIS B VACCINE (1 of 3 - 19+ 3-dose series) 2007 COVID-19 VACCINE (1 - 2023-2 5 season) 2024 DEPRESSION SCREENING 06/29/2024 INFLUENZA VACCINE (Season Ended) 2025 04/09/2016, 06/29/2015 ZOSTER VACCINE (1 of 2) 2038 HIB VACCINE Aged Out No longer eligi ble based on patient's age to complete this topic HPV VACCINE Aged Out No longer eligi ble based on patient's age to complete this topic MENINGOCOCCAL (Group B) VACCINE SHARED DECISION-MAKING Aged Out No longer eligible based on patient's age to complete this topic MENINGOCOCCAL GROUPS A/C/Y/W VACCINE Aged Out No longer eligible b ased on patient's age to complete this topic PNEUMOCOCCAL VACCINE Aged Out No long er eligible based on patient's age to complete this topic [place] [address] [place] [address] MEDICAID Care Teams Lead Producer Relationship Specialty Start Date End Date None, Physician PCP - General 08/01/24
--- NOTE | 2024-11-06 09:28 | ED_ITS ---
HPI - URI/Sore Throat General Chief Complaint: Upper Respiratory Infection Stated Complaint: sore throat, barking cough, hard to breath Time Seen by Provider: 11/06/24 09:34 Source: patient and RN notes reviewed Mode of arrival: ambulatory Limitations: no limitations History of Present Illness HPI Narrative: 34-year-old female presents with concern for cough, shortness of breath, hoarse voice, sore throat. Reports symptoms started when she woke up this morning. She denies fever, body aches, chills, sweats. MD elicited complaint: cough Related Data Allergies Allergy/AdvReac Type Severity Reaction Status Date / Time No Known Allergies Allergy Verified 11/06/24 09:31 Review of Systems Review of Systems: CONSTITUTIONAL: Denies malaise, chills, sweats, or fever. EYES: Denies visual changes, redness, or discharge. ENT: Denies rhinorrhea, congestion, sinus pain, otalgia. Reports mild sore throat and hoarse voice CARDIOVASCULAR: Denies chest pain, palpitations, or edema. RESPIRATORY: Reports cough, dyspnea. GASTROINTESTINAL: Denies abdominal pain, nausea, vomiting, diarrhea SKIN: Denies rash or itching. MUSCULOSKELETAL: Denies myalgia. NEUROLOGIC: Denies headache. All systems reviewed & are unremarkable except as noted in HPI and below PMFSH Past Medical History Medical History (Updated 11/06/24 @ 09:41 by Indira Pinto NP) Hypertension affecting Elective Surgical History Surgical History (Updated 05/18/24 @ 14:28 by Yohana Carlos NP) History of dilatation and curettage Family History Family History Mother Brain aneurysm Social History Social History Smoking status: Never smoker Alcohol intake: never Substance use: never Living arrangements: with family Gender identity (if verbalized by the patient): Female Spiritual care concerns: No Comments At time of signature, agree with nursing past medical, surgical, social and family history. There is no relevant family history pertinent to the presenting complaint Exam Narrative: GENERAL: Well-appearing, well-nourished, and in no acute distress. HEAD: Normocephalic EYES: PERRLA, conjunctivae clear ENT: Nares clear, turbinates edematous and erythematous, clear discharge. Mucous membranes moist. TM pearly pinto with sharp light reflex bilaterally; no tragal tenderness. Oropharynx not erythematous without lesions. Tonsils not enlarged and without exudate, no drooling, no hoarseness, no trismus, uvula midline. NECK: Supple. No lymphadenopathy CHEST: Clear to auscultation, breath sounds equal. No wheezing, rhonchi, rales, or stridor. No respiratory distress, speaks in full sentences. HEART: Regular rate and rhythm. No murmur heard. SKIN: Warm, dry, no rash. NEURO: Alert and oriented x3. PSYCH: Normal mood and affect Course Course Emergency Course: Patient is aware of diagnosis, understands and agrees to treatment plan. Anticipatory guidance given. Patient agrees to follow-up as directed and is aware of reasons to seek care at the emergency department. Portions of this record may have been created with voice recognition software Level of Care: Express Care Visit Vital Signs Vital signs: Reviewed. MDM - URI/Sore Throat MDM Narrative Medical decision making narrative: Differential diagnosis considered: Gar virus, strep pharyngitis, allergic rhinitis, upper respiratory tract infection, sinusitis, rhinosinusitis, nasophar yngitis. viral pharyngitis, otitis media, otitis externa, pneumonia, bronchitis, viral cough syndrome, viral syndrome, and influenza. Exam findings show no acute concerns or changes; patient is non-toxic appearing and is in no distress. Patient is appropriate for outpatient treatment and follow-up. Lab Data Attestation: I reviewed the patient's lab results. Critical Care Time Critical Care Time Critical Care Time: No Discharge Plan Discharge Clinical Impression: Upper respiratory infection Patient Disposition: Home Condition: Stable Instructions: Upper Respiratory Infection (ED) Additional Instructions: Viral illness may last between 7-21 days; antibiotics do not cure viral illness and are NOT recommended at this time. Recommend antihistamine such as Benadryl at night time and Zyrtec or Alannah during the day Cough syrup may cause drowsiness; avoid driving or take it at night time. Also, recommend symptomatic treatment includes: rest, fluids, and increase humidity of the air at home. Recommend Acetaminophen as directed on the bottle to reduce fever, pain, headache. Avoid smoking/second-hand smoke. Please schedule a follow-up visit with your personal physician for further evaluation and treatment within 3-5days. Including recheck and discussion of your blood pressure. If your symptoms persist, change or worsen significantly before you can contact your personal physician then please, without delay, go to the emergency department for further evaluation. Patient Language: Venezuelan Prescriptions: New pseudoephedrine HCl [12 Hour Decongestant] 120 mg tablet extended release 120 mg PO Q12H PRN (Reason: nasal congestion) Qty: 20 0RF promethazine-DM 6.25-15 mg/5 mL syrup 5 ml PO Q4-6H PRN (Reason: cough) Qty: 120 0RF Follow-up/Referrals: PHYSICIAN,PHARMACY PICKING TECHNICIAN [Primary Care Provider] - Stand Alone Forms: Work/School Release IP Time of Disposition: 09:43
[2024-11-06 09:31] VITALS: BP 148/84; PULSE 93; RESP 20; TEMP 36.6; O2SAT 99
== END 2024-11-06 09:45 | disposition home or self-care (01) ==
PROVIDERS: Emergency Provider Nurse Practitioner
DX: J06.9 Acute upper respiratory infection, unspecified (principal)
CPT/HCPCS: 99213; G0463

== ENCOUNTER 2025-01-30 09:05 | Emergency (ER) | payer BC, SELFPAY ==
[2025-01-30 09:14] VITALS: BP 140/104; PULSE 100; RESP 20; TEMP 36.4; O2SAT 100
--- OUTSIDE RECORDS SUMMARY | 2025-01-30 09:18 | XMS_ITS | Clinical Summary ---
Author Organization [facility] Address [address] [place] [address] Care Team Providers Care Flatbed Driver Name Role Phone None, Physician Primary Care Provider Unavailabl e Source Comments [facility],non-owned Affiliates and Associated Physician Practices is amultiple site organization consisting of ambulatory clinics and hospital sitesin [place], [place], [place] and [place]. This disclosure is being madepursuant to the Care Everywhere program and may not contain all information available regarding this patient. Last updated 18.[facility] Allergies No known active allergies Social History [...] Comments Blood Pressure 140/85 08/01/2024 7:30 PM GROUP WORK PROGRAM AIDE Pulse 98 08/01/2024 7:30 PM GROUP WORK PROGRAM AIDE Temperature 36.9 C (98.4 F) 08/01/2024 5:05 PM GROUP WORK PROGRAM AIDE Respiratory Rate 16 08/01/2024 7:30 PM GROUP WORK PROGRAM AIDE Oxygen Saturation 95% 08/01/2024 7:30 PM GROUP WORK PROGRAM AIDE Inhaled Oxygen Concentration - - Weight 149.3 kg (329 lb 3.2 oz) 08/01/2024 5:39 PM GROUP WORK PROGRAM AIDE Height 157.5 cm (5' 2) 08/01/2024 5:05 PM GROUP WORK PROGRAM AIDE Body Mass Index 60.21 08/01/2024 5:05 PM GROUP WORK PROGRAM AIDE Plan of Treatment Health Maintenance Due Date Last Done Comments HIV SCREENING 2003 HEPATITIS C SCREENING 06/09/2006 DTAP/TDAP/TD VACCINES (1 - Tdap) 2007 HEPATITIS B VACCINE (1 of 3 - 19+ 3-dose series) 2007 PAP SMEAR 2009 HPV VACCINE (1 - 3-dose SCDM series) 2015 COVID-19 VACCINE (1 - 2023-2 5 season) 2024 DEPRESSION SCREENING 06/29/2024 INFLUENZA VACCINE (#1) 2025 6, 06/29/2015 ZOSTER VACCINE (1 of 2) 2038 [...] patient's age to complete this topic Insurance MEDICAID Care Teams Flatbed Driver Relationship Specialty Start Date End Date None, Physician PCP - General 08/01/24
--- OUTSIDE RECORDS SUMMARY | 2025-01-30 09:18 | XMS_ITS | Clinical Summary ---
Author Organization [facility] [address] Address [address] [place] [address] Care Team Providers Care Manager Oncology Name Role Phone Taina Dutton DO Primary Care Provider [phone] Allergies No known active allergies Medications escitalopram oxalate (LEXAPRO) 10 mg tabletIndicati ons:Anxiety state Take 1 Tablet (10 mg) by mouth daily. 30 Tablet 3 01/20/20 25 Active semaglutide, weight loss, (WEGOVY) 0.25 mg/0.5 mL Pen InjectorIndica tions:Morbid obesity with BMI of 50.0-59.9, adult (CMS/HCC) Inject 0.5 mL (0.25 mg) by subcutaneous injection every 7 days. 2 mL 3 01/28/20 25 Active tirzepatide, weight loss, (Zepbound) 2.5 mg/0.5 mL Pen InjectorIndica tions:Morbid obesity with BMI of 50.0-59.9, adult (CMS/HCC) Inject 0.5 mL (2.5 mg) by subcutaneous injection every 7 days. 2 mL 3 01/20/20 25 025 Discontinued Active Problems No known active problems Encounters Date Type Department Care Team Description 01/24/2025 External Device Data STL ABSTRACTION Provider, Abstract 01/24/2025 Results Follow-Up [facility] Primary Care - [address] [id number] Taina Dutton DO TSH REFLEXIVE 01/24/2025 External Device Data STL ABSTRACTION Provider, Abstract 01/24/2025 External Device Data STL ABSTRACTION Provider, Abstract 01/19/2025 9:30 AM CDT Office Visit [facility] Primary Care - [facility] [address] [facility] [address] [place] [address] Taina Dutton, Encounter to establish care (Primary Dx); Morbid obesity with BMI of 50.0-59.9, adult ([facility]); Anxiety state 01/19/2025 Medication Prior Auth Encounter [facility] Prescription Management Dept [address] [place] [address] Sigrid Tinsley, PHARMACIST from Last 3 Months Family History Medical History Relation Name Comments Hypertension Father Heart Disease Maternal Grandfather Heart Disease Maternal Grandmother Brain Aneurysm Mother No Known Problems Paternal Grandfather No Known Problems Paternal Grandmother ADD Sister Bipolar Disorder Sister Relation Name Status Comments Father Maternal Grandfather Maternal Grandmother Mother Paternal Grandfather Paternal Grandmother Sister Social History Tobacco Use Types Packs/Day Years Used Date Smoking Tobacco: Never Tobacco Cessation:Counseling Given: Not Answered Alcohol Use Standard Drinks/Week Comments Never 0 (1 standard drink = 0.6 oz pur e alcohol) Comments Unknown Sex and Gender Information Value Date Recorded Sex Assigned at Not on file Legal Sex Female 1:39 PM CDT Gender Identity Not on file Sexual Orientation Not on file 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 Not on file Not on file Last Filed Vital Signs Vital Sign Reading Time Taken Comments Blood Pressure 120/80 01/19/2025 9:21 AM CDT Pulse 84 01/19/2025 9:21 AM CDT Temperature 36.6 C (97.8 F) 01/19/2025 9:21 AM CDT Respiratory Rate 20 01/19/2025 9:21 AM CDT Oxygen Saturation 98% 01/19/2025 9:21 AM CDT Inhaled Oxygen Concentration - - Weight 145.1 kg (319 lb 12.8 oz) 01/19/2025 9:21 AM CDT Height 157.5 cm (5' 2) 01/19/2025 9:21 AM CDT Body Mass Index 58.49 01/19/2025 9:21 AM CDT Plan of Treatment Upcoming Encounters Date Type Department Care Team (Late st Contact Info) Description 05/24/2025 8:00 AM HISTORIAN RESEARCH ASSISTANT Office Visit [facility] Primary Care - [facility] [address] [facility] [address] [place] [address] Melly Dong, TYPING SECTION CHIEF [address] [facility] [address] [place] [address] Health Maintenance Due Date Last Done Comments Pre-Diabetes and Diabetes Screening 1988 HPV VACCINES (1 - 3-dose series) 2003 HPV/Cotest (21-29) 2009 CERVICAL CANCER SCREENING 2018 HPV/Cotest (30-65) 2018 PAP SMEAR 2018 Preventative Visit- Commercial 06/29/2024 INFLUENZA VACCINE (#1) 2025 04/09/2016 DTAP/TDAP/TD VACCINES (7 - T d or Tdap) 06/29/2025 06/29/2015, 03/20/1994, 08/05/1990, Additional history exists HEPATITIS B VACCINES Completed 10/02/1998, 04/24/1998, 03/22/1998 Procedures Procedure Name Priority Date/Time Associated Diagnosis Comments TSH REFLEXIVE Routine 01/19/2025 10:20 AM CDT Morbid obesity with BMI of 50.0-59.9, adult (CMS/HCC) from Last 3 Months Results * TSH REFLEXIVE (01/19/2025 10:20 AM CDT) [facility] 2.57 [facility]IU[facility]L [facility] Comment: Reference Range > or = 20 Years 0.40-4.50 Ranges First trimester 0.26-2.66 Second trimester 0.55-2.73 Third trimester 0.43-2.91 FASTING:NO FASTING: NO Test [facility] [address] [place] [address] Randell Ennis Blood 01/19/2025 10:2 0 AM CDT 01/19/2025 10:21 AM CDT us Taina High DO CHEMISTRY ORDERABLES Maria D l Result [facility] [phone] [facility] [address] [place] [address] from Last 3 Months Insurance [employer] BLUE ACCESS CHOICE Care Teams Manager Oncology Relationship Specialty [place] [address] [address] PCP - General Family Practice 01/19/25
--- OUTSIDE RECORDS SUMMARY | 2025-01-30 09:18 | XMS_ITS | Encounter Summary ---
Author Organization [facility] Address [address] [place] [address] Care Team Providers Care Music Professor Name Role Phone Taina Dutton DO Primary Care Provider [phone] Encounter Details Date Type Department Care Team (Late st Contact Info) Description 01/24/2025 Results Follow-Up [address] [address] Taina Duttno DO [address] [place] [phone] TSH REFLEXIVE Social History Tobacco Use Types Packs/Day Years Used Date Smoking Tobacco: Never Alcohol Use Standard Drinks/Week Comments Never 0 (1 standard drink = 0.6 oz pur e alcohol) Comments Unknown Sex and Gender Information Value Date Recorded Sex Assigned at Not on file Legal Sex Female 1:39 PM CDT Gender Identity Not on file Sexual Orientation Not on file 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 Not on file Not on file documented as of this encounter Miscellaneous Notes * Result Encounter Note - Taina Dutton DO - 01/24/2025 6:24 PM CDT [facility] Plan of Treatment Upcoming Encounters Date Type Department Care Team (Late st Contact Info) Description 05/24/2025 8:00 AM CRACKER AND COOKIE MACHINE OPERATOR Office Visit [address] [place] [address] Melly Dong FNP [address] [address] documented as of this encounter Visit Diagnoses Not on filedocumented in this encounter Care Teams Music Professor Relationship Specialty [place] [address] [address] PCP - General Family Practice 01/19/25 documented as of this encounter
--- NOTE | 2025-01-30 09:24 | ED.BACK ---
HPI - Back Pain/Injury General Chief Complaint: Back Pain/Injury Stated Complaint: lower back pain Time Seen by Provider: 01/30/25 09:24 Source: patient and RN notes reviewed Mode of arrival: ambulatory Limitations: no limitations History of Present Illness HPI Narrative: 34-year-old female presents concern for right low back pain. Reports that started 2 days ago. Reports she woke up and then night with the pain, lower that day she had lifted her 4-year-old son over her head. She reports pain is is exacerbated by certain movements, deep breathing. She denies any direct injury or trauma. She denies loss of bowel or bladder function, perianal anesthesia, weakness in any extremity, fever, abdominal pain. MD elicited complaint: back pain Related Data Allergies Allergy/AdvReac Type Severity Reaction Status Date / Time No Known Allergies Allergy Verified 11/06/24 09:31 Review of Systems Review of Systems: CONSTITUTIONAL: Denies malaise, chills, sweats, or fever. CARDIOVASCULAR: Denies chest pain, palpitations, or edema. RESPIRATORY: Denies cough or dyspnea. GASTROINTESTINAL: Denies abdominal pain, nausea, vomiting, diarrhea, loss of bowel function GENITOURINARY: Denies dysuria, hematuria, frequency, loss of bladder function. SKIN: Denies rash or itching. MUSCULOSKELETAL: Reports right low back pain NEUROLOGIC: Denies numbness, weakness, or headache. All systems reviewed & are unremarkable except as noted in HPI and below PMFSH Past Medical History Medical History (Updated 01/30/25 @ 09:29 by Indira Pinto NP) Hypertension affecting Elective Surgical History Surgical History (Updated 05/18/24 @ 14:28 by Yohana Carlos NP) History of dilatation and curettage Family History Family History Mother Brain aneurysm Social History Social History Smoking status: Never smoker Alcohol intake: never Substance use: never Living arrangements: with family Gender identity (if verbalized by the patient): Female Spiritual care concerns: No Comments At time of signature, agree with nursing past medical, surgical, social and family history. There is no relevant family history pertinent to the presenting complaint Exam Narrative: GENERAL: Well-appearing, well-nourished, and in no acute distress. HEAD: Normocephalic, atraumatic. EYES: PERRLA and EOMI. NECK: Supple. No lymphadenopathy. CHEST: Clear to auscultation. No respiratory distress. HEART: Regular rate and rhythm. Distal pulses palpable and equal, cap refill <3 seconds ABDOMEN: Soft, nontender, nondistended, normal active bowel sounds, no palpable or pulsatile masses. No CVA tenderness MUSCULOSKELETAL: Normal range of motion and strength in all extremities; 5/5 strength with hip flexion and extension, dorsiflexion and extension, knee flexion and extension, plantar flexion and extension. Normal sensation in dermatomal distributions with sensitivity to light touch and pain. No midline back tenderness to palpation. No paraspinal tenderness. Transfers from sitting to standing. SKIN: Warm, dry, no rash. No ecchymosis, erythema, open wounds to back. NEURO: No focal deficits. Alert and oriented x3. Normal gait. PSYCH: Normal mood and affect Course Course Emergency Course: Patient is aware of diagnosis, understands and agrees to treatment plan. Anticipatory guidance given. Patient agrees to follow-up as directed and is aware of reasons to seek care at the emergency department. Portions of this record may have been created with voice recognition software Level of Care: Express Care Visit Vital Signs Vital signs: Vital Signs Temperature 97.6 F 01/30/25 09:14 Pulse Rate 100 01/30/25 09:14 Respiratory Rate 20 01/30/25 09:14 Blood Pressure 140/104 H 01/30/25 09:14 Pulse Oximetry 100 01/30/25 09:14 Oxygen Delivery Room Air 01/30/25 09:14 Temperature 97.6 F 01/30/25 09:14 Pulse Rate 100 01/30/25 09:14 Respiratory Rate 20 01/30/25 09:14 Blood Pressure 140/104 H 01/30/25 09:14 Pulse Oximetry 100 01/30/25 09:14 Oxygen Delivery Room Air 01/30/25 09:14 Reviewed. MDM - Back Pain/Injury MDM Narrative Medical decision making narrative: I evaluated this in the express care. History is obtained from patient who is an independent historian and physical exam was performed.? Available medical records were reviewed. ? Exam findings and relevant testing show no acute concerns or changes; patient is non-toxic appearing and is in no distress. No risk factors or findings concerning for epidural abscess, diskitis, vertebral osteomyelitis, cord compression, cauda equina, vertebral fracture or bone malignancy, AAA, or pyelonephritis. Patient instructed to consider further imaging and workup through their primary care physician as an outpatient if symptoms persist. ? Differential diagnosis and treatment plan were discussed with the patient. Patient agrees with discussion and after shared medical decision making agrees with plan of care. All questions were answered to the patient's satisfaction. Patient is appropriate for outpatient treatment and follow-up. Critical Care Time Critical Care Time Critical Care Time: No Discharge Plan Discharge Clinical Impression: Nonspecific low back pain Patient Disposition: Home Condition: Stable Instructions: Acute Low Back Pain (ED) Additional Instructions: Please follow up with your Primary Care Doctor within 48-72 hours - call for an appointment. Walking and other gentle exercising several times a week has been shown to improve back pain; bed rest is not recommended. Take prednisone, take muscle relaxers every 8 hours as needed for muscle spasm- do not drive or make any important decisions while on this medication for it can make you drowsy. You may apply heat or cold to the area as needed. If you experience any worsening pain, swelling, numbness, weakness please go to ER. Contact your doctor or go to the emergency department if you develop problems with bladder or bowel function, weakness or loss of feeling in one or both of your legs, or any other serious concerns. Patient Language: Belarusian Prescriptions: New cyclobenzaprine 10 mg tablet 10 mg PO TID PRN (Reason: muscle spasm) Qty: 20 0RF prednisone 50 mg tablet 50 mg PO DAILY 5 Days Qty: 5 0RF Follow-up/Referrals: PHYSICIAN NOT ON STAFF,NONSTAFF [Primary Care Provider] - Stand Alone Forms: Work/School Release IP Time of Disposition: 09:29
== END 2025-01-30 09:35 | disposition home or self-care (01) ==
PROVIDERS: Emergency Provider Nurse Practitioner
DX: M54.50 Low back pain, unspecified (principal)
CPT/HCPCS: 99213; G0463

== ENCOUNTER 2025-06-26 19:35 | Emergency (ER) | payer BC, SELFPAY ==
[2025-06-26 19:46] VITALS: BP 125/77; PULSE 87; RESP 16; TEMP 36.6; O2SAT 100
--- NOTE | 2025-06-26 19:56 | ED_ITS ---
HPI - Skin/Abscess/Foreign Bdy General Chief complaint: Skin/Abscess/Foreign Body Stated complaint: ?Spider Bite Time Seen by Provider: 06/26/25 19:57 Source: patient, RN notes reviewed and old records reviewed Mode of arrival: ambulatory Limitations: no limitations History of Present Illness HPI narrative: 35-year-old female presents to the [facility] with a vesicular rash to above the left eyebrow into the scalp. Reports pain behind the ear. States that started 2 days ago. Denies any blurry vision or change in vision. Onset (ago): day(s) (2) Treatments prior to arrival: none Related Data Home Medications ?Medication ?Instructions ?Recorded ?Confirmed ?Last Taken ?Type phentermine 37.5 mg capsule mg 06/26/25 Unknown Histo ry Allergies Allergy/AdvReac Type Severity Reaction Status Date / Time No Known Allergies Allergy Verified 06/26/25 20:05 Review of Systems Review of Systems: All systems reviewed & are unremarkable except as noted in HPI and below Constitutional: Constitutional: Reports no additional constitutional complaints Eyes: Eyes: Reports no additional eye complaints ENT: Reports system reviewed and no additional complaints, except as documented Cardiovascular: Cardiovascular: Reports no additional cardiovascular complaints, Denies chest pain and Denies dyspnea Respiratory: Respiratory: Reports no additional respiratory complaints, Denies chest congestion, Denies cough and Denies dyspnea Musculoskeletal: Musculoskeletal: Reports no additional musculoskeletal complaints Integumentary/Breasts: Skin/Breast: Reports as per HPI [facility] Past Medical History Medical History (Updated 06/27/25 @ 00:01 by Carline Luis) Hypertension affecting Elective Surgical History Surgical History (Updated 05/18/24 @ 14:28 by Yohana Carlos APRN) History of dilatation and curettage Family History Family History Mother Brain aneurysm Social History Social History Smoking status: Never smoker Alcohol intake: never Substance use: never Living arrangements: with family Gender identity (if verbalized by the patient): Female Spiritual care concerns: No Comments At the time of my signature, I reviewed and agree with the nursing past medical, surgical, social, and family history. There is no relevant family history pertinent to the patient complaint. Exam Const: General: cooperative, healthy appearing, comfortable, no acute distress, well developed, alert and well nourished Nutritional Appearance: well nourished and obese Orientation/consciousness: patient oriented x3 Limitations: no limitations HENMT: Head: normal to inspection Ears: hearing grossly normal bilaterally, external ears normal, TM's normal bilaterally, EAC's normal, mastoids normal and no periauricular adenopathy Face/Nose/Sinus: Normal external nose present, Normal nares present and No nasal discharge present Face and sinus: normal facial exam and face symmetric Mouth: Yes Normal oral and palatal mucosa present, Yes lip normal, Yes tongue normal and Yes moist mucous membranes Throat: posterior oropharynx normal, uvula midline and no uvular edema Eyes: General: appearance normal, both eyes and all related structures Alignment and Position: alignment normal Periorbital: periorbital findings normal Eyelids: eyelids normal Conjunctivae: conjunctivae normal Cornea: corneas normal and fluorescein used Neck: Neck: normal visual inspection, full ROM, no lymphadenopathy and no meningeal signs Chest: Chest palpation & inspection: normal inspection of the chest Resp: Effort & Inspection: normal respiratory effort and able to speak in complete sentences Auscultation: clear to auscultation bilaterally, no crackles, no rales, no rhonchi and no wheezes Cardio: Rate: regular rate Skin: General skin exam: normal color and no rashes or lesions noted Rashes: rashes noted ( above left eyebrow, left side of forehead to scalp herpetic lesions) Neuro: General: patient oriented x3, gait normal, moves all extremities and no meningeal signs Cognition (Neuro): normal cognition Speech: normal speech Gait exam (Neuro): Normal gait present Extrem: General: normal to inspection, full ROM, capillary refill normal and normal gait Psych: Appearance: grossly normal and well kempt Mental Status: mental status grossly normal Speech and movement: Normal speech and movement present and Clear speech present Affect: normal affect Attitude: cooperative Course Course Level of Care: Express Care Visit Vital Signs Vital signs: Vital Signs Temperature 97.9 F 06/26/25 19:46 Pulse Rate 87 06/26/25 19:46 Respiratory Rate 16 06/26/25 19:46 Blood Pressure 125/77 06/26/25 19:46 Pulse Oximetry 100 06/26/25 19:46 Temperature 97.9 F 06/26/25 19:46 Pulse Rate 87 06/26/25 19:46 Respiratory Rate 16 06/26/25 19:46 Blood Pressure 125/77 06/26/25 19:46 Pulse Oximetry 100 06/26/25 19:46 reviewed [facility] Narrative Medical decision making narrative: patient sitting in exam room. Patient is nontoxic, 2 day history of what appears to be a shingles rash to the left forehead above the eyebrow. Use fluorescein, no eye involvement. Patient is appropriate for outpatient treatment with strict signs and symptoms to proceed to the emergency room. Discharge instructions reviewed with patient, as well as provided in writing per nursing staff. The instructions also include specific and strict return/GO TO THE ER as well as f/u information. All questions have been answered, and the patient deny any further questions with discharge and discharge plan. Some parts of this dictation were generated by voice recognition software and may contain typographical and/or grammatical inaccuracies. Differential Diagnosis Differential Diagnosis: Differential diagnostic considerations for skin/abscess/foreign body issues include abscess of skin or subcutaneous tissue, viral exanthem, dermatophytosis, urticaria, herpes zoster, allergic reaction to drug, cellulitis, eczema, insect bites, impetigo, contact dermatitis, vasculitis. Lab Data [facility] Lab Attestation statement: I personally reviewed the patient's lab results. Labs: Reviewed Discharge Plan Discharge Clinical Impression: Shingles Patient Disposition: Home Condition: Stable Instructions: Shingles (ED) Additional Instructions: Take Tylenol as needed for pain. Apply ice. Take the antiviral as prescribed Follow-up primary care provider For worsening symptoms go directly to the emergency room Patient Language: Mongolian Prescriptions: New valacyclovir 1 gram tablet 1,000 mg PO TID 7 Days Qty: 21 0RF No Action phentermine 37.5 mg capsule Follow-up/Referrals: UNKNOWN,DOCTOR [Primary Care Provider] Stand Alone Forms: Work/School Release IP Time of Disposition: 20:07
[2025-06-26] MEDS: FLUORESCEIN SOD 1 MG/STRIP EACH EYE (20:15)
[2025-06-26] MEDS: TETRACAINE HCL 0.5% OPHTH SOLN 4 ML BTL 1 DROP LEFT EYE (20:15)
== END 2025-06-26 20:19 | disposition home or self-care (01) ==
PROVIDERS: Emergency Provider Nurse Practitioner
DX: B02.9 Zoster without complications (principal)
CPT/HCPCS: 99213; G0463